=== PATIENT | male | born 1965 | race Caucasian/White ===

== ENCOUNTER → 2017-03-15 | Outpatient (CLI) | payer OTHER ==
--- NOTE | 2017-03-16 14:45 | XR ---
Left calcaneus HISTORY: Left shoulder pain 2 views of the left calcaneus No comparisons Enthesophyte present at the insertion of the Achilles tendon. Small ossific density present at the po sterior aspect of the ankle joint, marginal spurring present anteriorly. Bone mineralization, alignme nt maintained. No evident fracture or dislocation. 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
== END | disposition home or self-care (01) ==
LOC: RADXRYALE 10:46
PROVIDERS: ATTEND Family Medicine
DX: M19.072 Primary osteoarthritis, left ankle and foot (principal)
CPT/HCPCS: 80053; 80061; 82306; 82550; 84439; 84443; 85025